=== PATIENT | male | born 1990 | race Two or more races ===

== ENCOUNTER 2017-06-24 21:55 | Emergency (ER) | payer MEDICAID ==
[~2017-06-24] VITALS: Ht 182.9 cm; Wt 77.1 kg
[2017-06-24 21:58] VITALS: BP 133/80
--- NOTE | 2017-06-25 02:17 | NUR ---
CALLED TO BED, NO RESPONSE.
--- NOTE | 2017-06-25 03:05 | NUR ---
CALLED PT NAME IN WR X3. PER ADMITTING PT LEFT.
== END 2017-06-25 03:08 | disposition home or self-care (01) ==
LOC: ER 22:07
DX: M79.644 Pain in right finger(s) (principal)
CPT/HCPCS: A4606; Z7610

== ENCOUNTER 2017-07-14 12:21 | Inpatient (IN) | payer MEDICAID ==
[2017-07-14] VITALS (14 sets, daily range): BP systolic 97–122; BP diastolic 59–92
[~2017-07-14] VITALS: Ht 180.3 cm; Wt 71.7 kg
[2017-07-14] MEDS ORDERED: VECURONIUM 10 MG VIAL IV ONE ×2 (12:23→13:00)
[2017-07-14] MEDS ORDERED: ETOMIDATE 2 MG/ML VIAL IV ONE ×2 (12:23→13:00)
--- NOTE | 2017-07-14 12:25 | NUR ---
NARCAN 2MG GIVEN PER MD ORDERS.
--- NOTE | 2017-07-14 12:29 | NUR ---
AT BEDSIDE FOR INTUBATON ETOMIDATE 20MG VECORONIUM 10MG ADMINISTERED VIA IV LAC, 18 G.
--- NOTE | 2017-07-14 12:31 | NUR ---
PATIENT INTUBATED ET 7.5, 23CM AT THE LIPS POSITIVE CO2 COLOR CHANGE BREATH SOUNDS HEARD BILATERALLY. VSS
--- NOTE | 2017-07-14 12:35 | NUR ---
VENT SETTINGS PER RT AC 16 TV 500 FIO2 100% PEEP 5
[2017-07-14] MEDS ORDERED: PROPOFOL 100 ML ONE (12:37)
[2017-07-14] MEDS ORDERED: NALOXONE PREFILLED SYRINGE 2 MG/2 ML SYRINGE ONE (12:37)
[2017-07-14 12:46] LABS: BASOPHILS # (AUTO) 0.3 /CMM (0.0-0.2); BASOPHILS % (AUTO) 1.8 % (0.0-2.0); EOSINOPHILS % (AUTO) 0.1 % (0.0-6.0); HEMATOCRIT 48 % (39-51); HEMOGLOBIN 16.3 g/dL (13.5-17.5); LYMPHOCYTES # (AUTO) 1.9 /CMM (0.8-4.8); LYMPHOCYTES % (AUTO) 10.2 % (20.0-44.0); MEAN CORPUSCULAR HEMOGLOBIN 32 PG (26.0-33.0); MEAN CORPUSCULAR HGB CONC 34 g/dl (31.0-36.0); MEAN CORPUSCULAR VOLUME 92 fL (80-96); MONOCYTES # (AUTO) 0.6 /CMM (0.1-1.30); MONOCYTES % (AUTO) 3.3 % (2.0-12.0); NEUTROPHILS # (AUTO) 15.8 /CMM (1.8-8.9); NEUTROPHILS % (AUTO) 84.6 % (43.0-81.0); PLATELET COUNT (AUTO) 326 /CMM (150-450); RDW COEFFICIENT OF VARIATION 12.8 (11.5-15.0); RED BLOOD CELL COUNT(AUTO) 5.16 MIL/uL (4.5-6.0); WHITE BLOOD COUNT (AUTO) 18.6 K/uL (4.3-11.0)
[2017-07-14 12:58] LABS: INR 1.16 (0.87-1.13)
--- NOTE | 2017-07-14 12:59 | NUR ---
16 FR howe catheter inserted per sterile protocal. Immediate output 50 ML of urine, yellow and clear.
[2017-07-14] MEDS ORDERED: IV NS 0.9% 1,000 ML BAG IV ONE ×2 (13:00→13:30)
[2017-07-14] MEDS ORDERED: NALOXONE HCL 0.4 MG/ML AMPUL IV ONE (13:00)
--- NOTE | 2017-07-14 13:00 | NUR ---
RT PT CAME FOR OVERDOSE INTUBATION FOR PROTECTION OF AIRWAY INITIALLY SATTING 80%. INTUBATED WITH 7.5 ETT 23 AT LIP BILATERAL BREATH SOUNDS AND CHEST RISE. PLACE PT ON AC 500 RATE 0F 16 100% +[address] RUIZ ABG IN 1 HOUR WILL CONTINUE TO MONITOR
[2017-07-14 13:06] LABS: TROPONIN I 1.057 ng/mL (0.00-0.056)
[2017-07-14 13:06] LABS: APPEARANCE,URINE Slightly Cloudy (CLEAR); BILIRUBIN,URINE Negative (NEGATIVE); BLOOD, URINE Moderate Ery/uL (NEGATIVE); COLOR,URINE Yellow (YELLOW); KETONES,URINE 15 (NEGATIVE); LEUKOCYTE ESTERASE ,URINE Negative (NEGATIVE); NITRITE, URINE Negative (NEGATIVE); PROTEIN,URINE 100 mg/dl (NEGATIVE); UGLUCOSE 500 MG/DL mg/dL (NEGATIVE); UROBILINOGEN,URINE 0.2 EU/dL (0.2)
--- NOTE | 2017-07-14 13:06 | NUR ---
INFORMED OF CRITICAL TROPONIN, ORDERED ATIVAN 2MG.
[2017-07-14] MEDS ORDERED: LORAZEPAM INJ 2 MG/ML VIAL ONE ×2 (13:08→15:14)
[2017-07-14 13:10] LABS: CALCIUM, SERUM 9.5 mg/dL (8.5-10.1); CARBON DIOXIDE 27 mmol/L (21-32); CHLORIDE 104 mmol/L (98-107); GLUCOSE 263 mg/dL (74-106); POTASSIUM 5.3 mmol/L (3.5-5.1); SODIUM SERUM 143 mmol/L (136-145); UREA NITROGEN, BLOOD 16 mg/dL (7-18)
[2017-07-14 13:16] LABS: ALANINE AMINOTRANSFERASE 20 U/L (12-78); ALBUMIN 4.5 g/dL (3.4-5.0); ALCOHOL, BLOOD < 3 mg/dL (0-0); ALKALINE PHOSPHATASE 71 U/L (46-116); ASPARTATE AMINOTRANSFERASE 21 U/L (15-37); BILIRUBIN,DIRECT 0.1 mg/dL (0.0-0.2); BILIRUBIN,TOTAL 0.8 mg/dL (0.2-1.0); SALICYLATE 1.5 mg/dL (2.8-20.0); TOTAL PROTEIN, SERUM 8.4 g/dL (6.4-8.2)
[2017-07-14 13:24] LABS: BACTERIA,URINE None seen /HPF (None Seen); SQUAMOUS EPITHELIAL CELL,UR Few /HPF (None Seen)
[2017-07-14 13:26] LABS: HYALINE CASTS, URINE Few /LPF (None Seen)
[2017-07-14] MEDS ORDERED: PIPERACILLIN /TAZOBACTAM 3.375 G VIAL IV ONE (13:30)
[2017-07-14] MEDS ORDERED: PIPERACILLIN /TAZOBACTAM 3.375 G in IV D5W 50 ML IV ONE (13:30)
[2017-07-14] MEDS ORDERED: LORAZEPAM INJ 2 MG/ML VIAL IV ONE ×2 (13:30→15:00)
--- NOTE | 2017-07-14 13:45 | NUR ---
LEAD PRINCIPAL TECHNICAL ARCHITECT IN ROOM
--- NOTE | 2017-07-14 13:51 | NUR ---
BAIT MAKER OUT OF ROOM.
[2017-07-14] MEDS ORDERED: PROPOFOL 100 ML IV PRN (14:00)
[2017-07-14] MEDS ORDERED: ONDANSETRON HCL/PF 4 MG/2 ML VIAL IVP PRN (14:00)
[2017-07-14] MEDS ORDERED: ACETAMINOPHEN 650 MG/SUPP.RECT RC PRN (14:00)
[2017-07-14] MEDS ORDERED: NOREPINEPHRINE 8 MG in IV D5W 500 ML IV PRN (14:00)
--- NOTE | 2017-07-14 14:10 | NUR ---
PATIENT TAKEN TO CT VIA STRETCHER WITH RN, RT, AND EMT.
--- NOTE | 2017-07-14 14:29 | NUR ---
PATIENT RETURNED FROM CT SCAN.
--- NOTE | 2017-07-14 15:05 | NUR ---
REPORT GIVEN TO HUBER ERICKSON FOR CAIO UPON ADMISSION.
--- NOTE | 2017-07-14 15:20 | NUR ---
REPEAT EKG PERFORMED, SHOWS ST ELEVATION. DR. CHOUDHURY AND TIFFANIE CORRAL INFORMED, AWAITING UPDATE.
[2017-07-14] MEDS ORDERED: ENOXAPARIN SODIUM 40 MG/0.4 ML DISP.SYRIN SQ SCH (16:00)
[2017-07-14 16:10] LABS: BAND % (MANUAL) 8 % (0.0-5.0); LYMPHOCYTES % (MANUAL) 16 % (16-48); MONOCYTES % (MANUAL) 5 % (0-11.0); NEUTROPHILS % (MANUAL) 71 (42-76)
[2017-07-14] MEDS ORDERED: ASPIRIN 300 MG/SUPP.RECT RC STA (16:20)
[2017-07-14] MEDS ORDERED: ASPIRIN 300 MG/SUPP.RECT RC ONE (16:22)
--- NOTE | 2017-07-14 17:31 | NUR ---
REPORT GIVEN TO ALEX ERICKSON FOR CAIO UPON ADMISSION. DR. BUSTAMANTE AND TIFFANIE CORRAL CONFIRMED PATIENT CAN BE ADMITTED UP TO FLOOR AT THIS TIME.
--- NOTE | 2017-07-14 18:00 | NUR ---
PATIENT ADMITTED FROM ER WITH DX OVERDOSE. ORALLY INTUBATED-CONNECTED TO VENT BY RT. PATIENT OPENS EYES BUT DOES NOT FOLLOW COMMANDS. TRYING TO REACH FOR ETT. PLACED ON BILATERAL WRIST RESTRAINTS. DIPRIVAN DRIP AT 40 MCG/KG/MIN. ADMISSION ASSESSMENT INITIATED. SR ON MONITOR. SBP>100. MULTIPLE SKIN BRUISING ON BUE/BLE.
[2017-07-14] MEDS: PIPERACILLIN /TAZOBACTAM 3.375 G in IV D5W 50 ML IV SCH ×2 (18:17→23:55)
[2017-07-14] MEDS: IV NS 0.9% 1,000 ML IV PRN (18:17)
--- NOTE | 2017-07-14 19:30 | NUR ---
AIRCRAFT LANDING GEAR INSPECTOR OPENING NOTES REPORT RECEIVED FROM NICK ERICKSON. PATIENT VERBALLY UNAROUSABLE @ THIS TIME W/ LITTLE RESPONSE TO TACTILE STIMULI. ETT IN PLACE W/ VENT SETTINGS AC 16, TV 500, FIO2 70%, PEEP 5. ON TELE SINUS RHYTHM W/ ELEVATED T WAVE IN THE 90S. LEFT AC, LEFT HAND & RIGHT HAND IV SITES INTACT & PATENT. PROPOFOL RUNNING @ 40MCG IN LEFT AC & NS @ 125 ML/HR IN RIGHT HAND. NO COMPLICATIONS NOTED. MALDONADO CATH INTACT & DRAINING YELLOW URINE. SAFETY MEASURES IN PLACE W/ BILATERAL SOFT WRIST RESTRAINTS APPLIED. WILL CONTINUE TO MONITOR.
[2017-07-14 20:52] LABS: ABG PCO2 42.8 mmHg (35.0-45.0); ABG PH 7.357 (7.350-7.450); ABG PO2 279.4 mmHg (75.0-100.0); AaDO2 173.7 mmHg; COHb 1.8 % (0.5-1.5); MetHb 0.5 % (0.0-1.5); O2Hb 96.7 % (94.0-97.0); PEEP,BG 5 cm H2O; SITE, ABG Right Radial
--- NOTE | 2017-07-14 20:56 | NUR ---
ABG DONE. NOTIFIED RN WITH THE RESULT. FIO2 TITRATED TO 50%. WILL CONTINUE TO MONITOR.
[2017-07-14] MEDS: ENOXAPARIN SODIUM 40 MG/0.4 ML DISP.SYRIN SQ SCH (21:00)
--- NOTE | 2017-07-14 21:16 | NUR ---
PT RECEIVED INTUBATED WITH 7.5 ETT SECURED AT 23CM AT THE LIP. NO RESP DISTRESS NOTED PT TOLERATING VENT SETTINGS. SX'D FOR MOD AMT OF THICK YELLOW SECRETIONS. VENT ALARMS SET AND AUDIBLE. AMBU BAG AT [facility]. VENT PLUGGED INTO RED OUTLET. WILL CONTINUE TO MONITOR. Addendum: 07/14/17 at 2117 by MICHAELA FRANK RT Amended: Links added.
--- NOTE | 2017-07-14 22:00 | NUR ---
RN NOTES RECEIVED CALL FROM LAB W/ TROPONIN LEVEL = [phone].
[2017-07-14] MEDS: LORAZEPAM INJ 2 MG/ML VIAL IV PRN (22:33)
[2017-07-14] MEDS: PROPOFOL 10MG/ML 50ML 50 ML IV PRN (22:34)
--- NOTE | 2017-07-14 22:40 | NUR ---
RN NOTES NEW BOTTLE OF DIPRIVAN STARTED & INCREASED RATE @ 45 MCG/KG D/T PATIENT BEING MORE AWAKE & TRYING TO PULL OUT ETT. WILL CONTINUE TO MONITOR.
[2017-07-15] VITALS (31 sets, daily range): BP systolic 94–119; BP diastolic 53–80
--- NOTE | 2017-07-15 00:30 | NUR ---
RN NOTES PATIENT CONTINUES TO WAKE UP AND ATTEMPT TO PULL ETT. DIPRIVAN DRIP INCREASED TO 50 MCG/KG/MIN. WILL CONTINUE TO MONITOR.
[2017-07-15] MEDS: PROPOFOL 10MG/ML 50ML 50 ML IV PRN ×9 (01:12→12:03)
[2017-07-15] MEDS: IV NS 0.9% 1,000 ML IV PRN ×3 (02:13→20:31)
[2017-07-15] MEDS: LORAZEPAM INJ 2 MG/ML VIAL IV PRN (02:14)
--- NOTE | 2017-07-15 03:59 | NUR ---
RN NOTES SPOKE TO LARISSA RODRÍGUEZ REGARDING PATIENT CONTINUING TO WAKE UP DESPITE DIPRIVAN DRIP @ MAX 50 MCG/KG/MIN. RECEIVED NEW ORDER MAY TITRATE UP TO 100 MCG/KG/MIN. ORDER CARRIED OUT.
[2017-07-15 05:27] LABS: BASOPHILS % (AUTO) 0.2 % (0.0-2.0); EOSINOPHILS % (AUTO) 0.2 % (0.0-6.0); HEMATOCRIT 40 % (39-51); HEMOGLOBIN 13.7 g/dL (13.5-17.5); LYMPHOCYTES # (AUTO) 1.6 /CMM (0.8-4.8); LYMPHOCYTES % (AUTO) 12.3 % (20.0-44.0); MEAN CORPUSCULAR HEMOGLOBIN 32 PG (26.0-33.0); MEAN CORPUSCULAR HGB CONC 34 g/dl (31.0-36.0); MEAN CORPUSCULAR VOLUME 92 fL (80-96); MONOCYTES # (AUTO) 0.4 /CMM (0.1-1.30); NEUTROPHILS # (AUTO) 11.1 /CMM (1.8-8.9); NEUTROPHILS % (AUTO) 84.3 % (43.0-81.0); PLATELET COUNT (AUTO) 189 /CMM (150-450); RED BLOOD CELL COUNT(AUTO) 4.35 MIL/uL (4.5-6.0); WHITE BLOOD COUNT (AUTO) 13.2 K/uL (4.3-11.0)
[2017-07-15 05:39] LABS: ALBUMIN 3.3 g/dL (3.4-5.0); BILIRUBIN,TOTAL 0.8 mg/dL (0.2-1.0); CALCIUM, SERUM 8.2 mg/dL (8.5-10.1); MAGNESIUM 1.9 mg/dL (1.8-2.4); POTASSIUM 3.8 mmol/L (3.5-5.1); TOTAL PROTEIN, SERUM 6.1 g/dL (6.4-8.2)
[2017-07-15] MEDS: PIPERACILLIN /TAZOBACTAM 3.375 G in IV D5W 50 ML IV SCH ×4 (05:59→23:34)
--- NOTE | 2017-07-15 06:05 | NUR ---
RN NOTES RECEIVED CALL FROM LAB FOR TROPONIN LEVEL 0.074. LEVEL TRENDING DOWN.
--- NOTE | 2017-07-15 06:09 | NUR ---
RN NOTES DIPRIVAN DRIP CURRENTLY @ 65 MCG/KG/MIN. TOLERATING WELL.
--- NOTE | 2017-07-15 08:01 | NUR ---
INITIAL VISION IMPAIRED TEACHER NOTE RCVD PT SEDATED, PT RESPONDS TO PAINFUL STIMULI. BILATERAL SOFT WRIST RESTRAINTS IN PLACE. CIRCULATION CHECKS DONE. SR ON TELE WITH T ELEVATION. MALDONADO DRAINING GREEN/YELLOW URINE. IV SITES C/D/I/PATENT. NO S/O INFILTRATION/PHLEBITIS OBSERVED. WILL CONTINUE TO MONITOR PT FOR SAFETY AND COMFORT. BED IN LOW AND LOCKED POSITION.
[2017-07-15] MEDS ORDERED: ASPIRIN 300 MG/SUPP.RECT RC SCH (09:00)
[2017-07-15] MEDS ORDERED: ASPIRIN 325 MG TABLET PO SCH (09:00)
[2017-07-15] MEDS ORDERED: PANTOPRAZOLE 40 MG VIAL IV SCH (09:00)
--- NOTE | 2017-07-15 09:14 | NUR ---
FIELD AGRONOMIST NOTE PT ABLE TO COME OFF SEDATION QUICKLY UPON CHANGING BOTTLES. PT BECAME AGITATED CALMED DOWN AFTER BEING ORIENTED TO PLACE, SITUATION. PT ABLE TO FOLLOW SIMPLE COMMANDS SUCH SQUEEZE FINGERS ON COMMAND. WILL CONTINUE TO MONITOR.
[2017-07-15 09:20] LABS: ABG BASE EXCESS 0.3 mmol/L; ABG PCO2 40.7 mmHg (35.0-45.0); ABG PH 7.406 (7.350-7.450); ABG PO2 96.3 mmHg (75.0-100.0); AaDO2 142.1 mmHg; COHb 0.6 % (0.5-1.5); MetHb 0.5 % (0.0-1.5); O2Hb 95.9 % (94.0-97.0); SITE, ABG Right Radial
--- NOTE | 2017-07-15 13:56 | NUR ---
PER DR OLIVO ORDER PATIENT WAS EXTUBATED. PATIENT AWAKE, ALERT, RESPONSIVE. NO SOB AT THIS TIME. FAMILY AT BEDSIDE
--- NOTE | 2017-07-15 14:00 | NUR ---
DOPE HEATER NOTE BEDSIDE SWALLOW EVAL DONE. PT TOLERATED ICE CHIPS, PUDIN AND THIN LIQUIDS. DIET ORDERED PER DR. OLIVO. NO DIETARY RESTRICTIONS PER PT.
[2017-07-15] MEDS ORDERED: LORAZEPAM 1 MG TABLET PO PRN (14:30)
--- NOTE | 2017-07-15 19:24 | NUR ---
RECEIVING DOCK CHECKER NOTE PT REMAINS STABLE, BREATHING WELL ON RA. MALDONADO DISCONTINUED AT 1400. PT VOIDING WELL TO URINAL. IV SITES C/D/I/PATENT. NO S/O INFILTRATION/PHLEBITIS OBSERVED. PT'S CARE ENDORSED TO WEBSITE DEVELOPER RN FOR CONTINUITY OF CARE.
--- NOTE | 2017-07-15 20:00 | NUR ---
Received patient awake alert and oriented x 4.Moves all extremities.VS stable.SR. Respiration even and unlabored.O2 sat 94% ON rm air.Patient denies any discomfort at present.Saline lock sites x 3 intact.Safety measures implemented with call light within reach. Provided urinal.
[2017-07-15] MEDS: ENOXAPARIN SODIUM 40 MG/0.4 ML DISP.SYRIN SQ SCH (21:02)
[2017-07-16] VITALS (12 sets, daily range): BP systolic 97–117; BP diastolic 55–75
[2017-07-16] MEDS ORDERED: ACETAMINOPHEN 325 MG TABLET ONE (00:08)
--- NOTE | 2017-07-16 00:11 | NUR ---
Patient febrile 101.Tylenol given as PRN.Cooling measures done.
[2017-07-16] MEDS ORDERED: ACETAMINOPHEN 325 MG TABLET PO PRN (00:30)
--- NOTE | 2017-07-16 00:30 | NUR ---
RESERVE OFFICER PT COMPLAINING OF LEFT LEG AND LEFT EAR NUMBNESS. PT STATES THAT HE FELT THE NUMBNESS WHEN HE WOKE UP ON 07/15. PT WAS EXTUBATED AT 1356 ON 07/15. AT 0025 PT STATED HIS COMPLAINT AND PRIMARY EPIC PROVIDER (RAMON DIAS) WAS NOTIFIED. NEURO ASSESSMENT DONE WITH NO DEFICITS NOTED, NO APHASIA. PT IS A/A/O X4, MOVES ALL EXTREMITIES.TURNS IN BED INDEPENDENTLY. FAMILY AT BEDSIDE.
--- NOTE | 2017-07-16 00:30 | NUR ---
Patient family visiting.Updated of patient status.
--- NOTE | 2017-07-16 00:45 | NUR ---
BURGLAR ALARM INSTALLER NO NEW ORDERS RECEIVED AT THIS TIME FOR LEFT EAR AND LEG NUMBNESS COMPLAINT. WILL CONTINUE TO CLOSELY MONITOR.
[2017-07-16] MEDS: IV NS 0.9% 1,000 ML IV PRN (04:47)
[2017-07-16 04:55] LABS: BASOPHILS % (AUTO) 0.1 % (0.0-2.0); EOSINOPHILS % (AUTO) 0.4 % (0.0-6.0); HEMATOCRIT 38 % (39-51); HEMOGLOBIN 13.2 g/dL (13.5-17.5); LYMPHOCYTES # (AUTO) 1.9 /CMM (0.8-4.8); LYMPHOCYTES % (AUTO) 15.6 % (20.0-44.0); MEAN CORPUSCULAR HEMOGLOBIN 31 PG (26.0-33.0); MEAN CORPUSCULAR HGB CONC 34 g/dl (31.0-36.0); MEAN CORPUSCULAR VOLUME 91 fL (80-96); MONOCYTES # (AUTO) 0.7 /CMM (0.1-1.30); MONOCYTES % (AUTO) 5.9 % (2.0-12.0); NEUTROPHILS # (AUTO) 9.4 /CMM (1.8-8.9); PLATELET COUNT (AUTO) 193 /CMM (150-450); RDW COEFFICIENT OF VARIATION 13.1 (11.5-15.0); RED BLOOD CELL COUNT(AUTO) 4.23 MIL/uL (4.5-6.0); WHITE BLOOD COUNT (AUTO) 11.9 K/uL (4.3-11.0)
[2017-07-16 05:11] LABS: ALBUMIN 2.8 g/dL (3.4-5.0); BILIRUBIN,TOTAL 0.7 mg/dL (0.2-1.0); CALCIUM, SERUM 8.5 mg/dL (8.5-10.1); CREATININE 0.8 mg/dL (0.6-1.3); PHOSPHORUS 1.9 mg/dL (2.5-4.9); POTASSIUM 3.4 mmol/L (3.5-5.1); TROPONIN I 0.302 ng/mL (0.00-0.056)
[2017-07-16] MEDS: PIPERACILLIN /TAZOBACTAM 3.375 G in IV D5W 50 ML IV SCH (05:28)
--- NOTE | 2017-07-16 06:56 | NUR ---
Patient slept most of the night.Latest temp 98.8.IVF infusing well.Safety measures maintained with call light within reach.Needs attended.Verbalized still with numbness to left ear and left leg. Will endorse to AM shift RN for continuity of care.
[2017-07-16] MEDS: PANTOPRAZOLE 40 MG TABLET.DR PO SCH (07:59)
--- NOTE | 2017-07-16 08:09 | NUR ---
FORM LAYER NOTE RCVD PT SLEEPING IN BED, EASILY AROUSED TO NAME/LIGHT TOUCH. SR ON TELE. ON RA WITH GOO SATURATION. VOIDING TO URINAL. LEFT AC #18 AND LEFT HAND #20 C/D/I/PATENT. NO S/O INFILTRATION/PHLEBITIS OBSERVED UPON FLUSHING. PT C/O NO PAIN AT THIS TIME, NUMBNESS OVER LEFT EAR RADIATING TO LEFT SIDE OF HEAD AND LLE REMAIN. PT WAS OBSERVED DRIFTING LLE UPON ASSESSING WHILE HOLDING LEG UP FOR 5 SECONDS. FINDINGS WERE REPORTED TO DR. BUSTAMANTE WHO IS SEEING PT. NO NEW ORDERS WERE RCVD. WILL CONTINUE TO MONITOR PT FOR SAFETY AND COMFORT. CALL LIGHT WITHIN REACH. PT ENCOURAGED TO SIT IN CHAIR FOR MEALS, PT REPORTED NO DIZZINESS UPON STANDING UP, PT TRANSFERRED INDEPENDENTLY TO CHAIR.
[2017-07-16] MEDS ORDERED: ASPIRIN EC 325 MG TABLET.DR PO SCH (09:00)
[2017-07-16] MEDS ORDERED: POTASSIUM CHLORIDE 20 MEQ TAB.PRT.SR PO SCH (10:00)
--- NOTE | 2017-07-16 10:16 | NUR ---
TRANSFER TO MED-KERFER MACHINE OPERATOR NOTE PT TRANSFERRED TO MED-SURG ROOM 314-2 VIA WHEELCHAIR, MS STATUS. PT TRANSFERRED TO WHEELCHAIR AND BACK TO BED INDEPENDENTLY. REPORT GIVEN TO WINNIE CERDA. PT'S CELL PHONE, PAROLE BOARD MEMBER, SOCKS AND BLANKET TRANSPORTED WITH PT.
--- NOTE | 2017-07-16 10:30 | NUR ---
ms rn received a new transfer from icu, 27 year old male, awake,alert,oriented x4,not in any form of distress, respirations even and unlabored,no sob notewd, denies pain at this time, will monitor patient's condition.
[2017-07-16] MEDS ORDERED: K PHOS NEUTRAL 250 MG TABLET PO ONE (11:30)
[2017-07-16] MEDS ORDERED: LEVOFLOXACIN (750 MG) 750 MG TABLET PO SCH (12:00)
--- NOTE | 2017-07-16 12:30 | NUR ---
ms soto lunch served, due meds given, tolerated well.
--- NOTE | 2017-07-16 19:00 | NUR ---
MS RN NO CHANGE OF CONDITION,ALL NEEDS ATTENDED.
--- NOTE | 2017-07-16 19:15 | NUR ---
RN OPENING NOTES PT SLEEPING IN BED. EASILY AWOKEN BY NAME. NO COMPLAINTS OF PAIN OR DISCOMFORT AT THIS TIME. NO SOB NOTED AT THIS TIME. PT HAS LEFT HAND #20 AND LEFT AC #18 IV, BOTH INTACT AND PATENT. SAFETY PRECAUTIONS IN PLACE. BED IN LOW, LOCKED POSITION, [id number] UP. WILL CONTINUE TO MONITOR.
[2017-07-16] MEDS: ENOXAPARIN SODIUM 40 MG/0.4 ML DISP.SYRIN SQ SCH (20:51)
[2017-07-17 06:59] LABS: CALCIUM, SERUM 8.3 mg/dL (8.5-10.1); CREATININE 0.7 mg/dL (0.6-1.3); PHOSPHORUS 2.9 mg/dL (2.5-4.9); POTASSIUM 3.3 mmol/L (3.5-5.1)
--- NOTE | 2017-07-17 07:20 | NUR ---
RN CLOSING NOTES PT RESTING IN BED. NO COMPLAINTS OF PAIN OR DISCOMFORT AT THIS TIME. NO SOB NOTED AT THIS TIME. PT HAS LEFT HAND #20 AND LEFT AC #18 IV, BOTH INTACT AND PATENT. SAFETY PRECAUTIONS IN PLACE. BED IN LOW, LOCKED POSITION, [id number] UP. WILL ENDORSE TO DAY SHIFT NURSE FOR CONTINUITY OF CARE.
--- NOTE | 2017-07-17 07:48 | NUR ---
MS/RN OPENING NOTE RECEIVED PATIENT IN BED AWAKE. ALERT AND ORIENTED X4. RESPIRATION REGULAR AND UNLABORED. DENIES SOB, PAIN. IN NO APPARENT DISTRESS. LEFT AC G18 PATENT, NO S/S INFILTRATION NOTED. BED LOW AND LOCKED. SIDE RAIL UP X2. CALL LIGHT WITHIN REACH. WILL CONTINUE TO MONITOR.
[2017-07-17 08:00] VITALS: BP 123/77
[2017-07-17] MEDS: PANTOPRAZOLE 40 MG TABLET.DR PO SCH (09:06)
[2017-07-17] MEDS ORDERED: POTASSIUM CHLORIDE 20 MEQ TAB.PRT.SR PO ONE (11:00)
--- NOTE | 2017-07-17 11:05 | NUR ---
Social service consult requested by RAMON Dave for drug resources. Pt. is a 27 year old made who was initially admitted on 07/14/17 to Intensive Care Unit for substance abuse overdose. Pt. was found unconscious in a hotel room. SW met with pt. and his mother bedside. Pt. is alert and oriented and was sitting on the bed getting ready to be discharged. SW offered pt. referrals to drug treatment programs however pt. declined. Pt. has a chip installed in his body that assist him in not doing drugs. Pt. had been sober for a few years and relapsed last week when he broke up with his girlfriend. No other social service needs are requested at this time SW is available if needed.
--- NOTE | 2017-07-17 11:10 | NUR ---
MS/RN CLOSING NOTE PATIENT DRESSED UP AND SITTING IN BED. MOTHER BY THE BEDSIDE. PATIENT ALERT AND ORIENTED X4. RESPIRATION REGULAR AND UNLABORED. DENIES SOB, DENIES PAIN. IN NO APPARENT DISTRESS. DISCHARGE EDUCATION PROVIDED. THE PATIENT AND THE MOTHER VERBALIZED UNDERSTANDING. PATIENT LEFT THE FACILITY WITH THE MOTHER VIA PRIVATE CAR. PATIENT LEFT IN STABLE CONDITION.
== END 2017-07-17 12:30 | disposition home or self-care (01) | DRG 812 ==
LOC: ER 12:22 → UNDOADMIN 15:08 → ICU 15:08 → MED 07-16 10:06
PROVIDERS: ADMIT Nurse Practitioner Acute Care; ATTEND Nurse Practitioner Acute Care
PROC: 5A1945Z Respiratory Ventilation, 24-96 Consecutive Hours (ICD-10-PCS; principal; 2017-07-14)
PROC: 0BH18EZ Insertion of Endotracheal Airway into Trachea, Via Natural or Artificial Opening Endoscopic (ICD-10-PCS; principal; 2017-07-14)
DX: T43.621A Poisoning by amphetamines, accidental (unintentional), initial encounter (principal); J96.01 Acute respiratory failure with hypoxia; I21.4 Non-ST elevation (NSTEMI) myocardial infarction; J69.0 Pneumonitis due to inhalation of food and vomit; G92 Toxic encephalopathy; N17.9 Acute kidney failure, unspecified; T40.5X1A Poisoning by cocaine, accidental (unintentional), initial encounter; T42.4X1A Poisoning by benzodiazepines, accidental (unintentional), initial encounter; T40.7X1A Poisoning by cannabis (derivatives), accidental (unintentional), initial encounter; D72.829 Elevated white blood cell count, unspecified; R73.9 Hyperglycemia, unspecified; F19.188 Other psychoactive substance abuse with other psychoactive substance-induced disorder; Y92.59 Other trade areas as the place of occurrence of the external cause; R56.9 Unspecified convulsions; E87.2 Acidosis; E87.5 Hyperkalemia
CPT/HCPCS: 31720; 36415; 36600; 70450-TC; 71045-TC; 80048-TC; 80053-TC; 80076-TC; 80305; 81000-TC; 82803-TC; 82962-TC; 83605-TC; 83735-TC; 84100-TC; 84484-TC; 85025-TC; 85730-TC; 87040-TC; 87081-TC; 93307-TC; 94002-TC; 94003-TC; 94762-TC; 94799-TC; A4606; C9113; G0480; J1650; J2060; J2310; J2543; J3490; J7030; J7050; J7060; Z7610

== ENCOUNTER 2018-10-02 00:48 | Emergency (ER) | payer MEDICAID, OTHER ==
[~2018-10-02] VITALS: Ht 182.9 cm; Wt 79.4 kg
--- NOTE | 2018-10-02 01:00 | NUR ---
PT DANG. C/O "FOUND IN BATHROOM, ADMITTING TO USING CRYSTAL AND HEROIN AROUND 2 HRS AGO" PT AOX4. GIVEN NARCAN 2MG ON ROUTE. RESPIRATIONS EVEN/UNLABOURED. -DIZZY -N.V NOTED.
[2018-10-02] MEDS ORDERED: ONDANSETRON HCL/PF 4 MG/2 ML VIAL ONE (01:15)
[2018-10-02 01:19] LABS: BASOPHILS # (AUTO) 0.1 /CMM (0.0-0.2); BASOPHILS % (AUTO) 1.1 % (0.0-2.0); EOSINOPHILS % (AUTO) 0.6 % (0.0-6.0); HEMATOCRIT 44 % (39-51); HEMOGLOBIN 15.3 g/dL (13.5-17.5); LYMPHOCYTES # (AUTO) 2.6 /CMM (0.8-4.8); LYMPHOCYTES % (AUTO) 32.8 % (20.0-44.0); MEAN CORPUSCULAR HGB CONC 35 g/dl (31.0-36.0); MEAN CORPUSCULAR VOLUME 90 fL (80-96); MONOCYTES # (AUTO) 0.6 /CMM (0.1-1.30); MONOCYTES % (AUTO) 7.2 % (2.0-12.0); NEUTROPHILS # (AUTO) 4.6 /CMM (1.8-8.9); NEUTROPHILS % (AUTO) 58.3 % (43.0-81.0); PLATELET COUNT (AUTO) 212 /CMM (150-450); RED BLOOD CELL COUNT(AUTO) 4.87 MIL/uL (4.5-6.0); WHITE BLOOD COUNT (AUTO) 7.8 K/uL (4.3-11.0)
[2018-10-02] MEDS ORDERED: ONDANSETRON HCL/PF 4 MG/2 ML VIAL IVP ONE (01:30)
[2018-10-02] MEDS ORDERED: IV NS 0.9% 1,000 ML BAG IV ONE (01:30)
[2018-10-02 01:41] LABS: ALBUMIN 4.2 g/dL (3.4-5.0); BILIRUBIN,DIRECT 1.1 mg/dL (0.0-0.2); BILIRUBIN,TOTAL 2.6 mg/dL (0.2-1.0); CALCIUM, SERUM 9.3 mg/dL (8.5-10.1); CREATININE 1.1 mg/dL (0.6-1.3); TOTAL PROTEIN, SERUM 7.6 g/dL (6.4-8.2)
[2018-10-02 02:01] LABS: POTASSIUM 3.4 mmol/L (3.5-5.1)
[2018-10-02 04:46] VITALS: BP 112/68
== END 2018-10-02 04:46 | disposition home or self-care (01) ==
LOC: ER 00:52
DX: T40.1X1A Poisoning by heroin, accidental (unintentional), initial encounter (principal); F17.200 Nicotine dependence, unspecified, uncomplicated; F15.10 Other stimulant abuse, uncomplicated; R94.5 Abnormal results of liver function studies; Y92.89 Other specified places as the place of occurrence of the external cause
CPT/HCPCS: 36415; 71045; 80048; 80076; 80305; 85025; 93005; 96374; 99284; 99406; J2405; J7030

== ENCOUNTER 2020-11-20 20:49 | Emergency (ER) | payer MEDICAID, OTHER ==
[~2020-11-20] VITALS: Ht 182.9 cm; Wt 81.6 kg
[2020-11-20 20:50] VITALS: BP 122/76
[2020-11-20] MEDS ORDERED: IV NS 0.9% 1,000 ML BAG IV ONE (21:30)
== END 2020-11-20 22:28 | disposition home or self-care (01) ==
LOC: ER 20:55
DX: S00.83XA Contusion of other part of head, initial encounter (principal); F11.10 Opioid abuse, uncomplicated; E86.0 Dehydration; X58.XXXA Exposure to other specified factors, initial encounter; Y93.89 Activity, other specified; Y92.89 Other specified places as the place of occurrence of the external cause; Y99.8 Other external cause status
CPT/HCPCS: 70450; 70486; 96360; 99285; J7030

== ENCOUNTER 2021-08-21 19:03 | Emergency (ER) | payer OTHER ==
[~2021-08-21] VITALS: Ht 182.9 cm; Wt 86.2 kg
--- NOTE | 2021-08-21 19:06 | NUR ---
BIBRA 60 FRM HOME. AMS R/T SMOKING FENTANYL. PER SAMPLE HAND REPORT, "WE SAW HIM UNCONSCIOUS ON THE FLOOR, STARTED IV LINE. IN THE AMBULANCE EN ROUTE, HE WOKE UP AND GOT CONFUSED, PULLED OUT IV LINE." TO ER BED 13, HOOKED TO MONITOR. CHANGED TO HOSP GOWN, WARM BLANKET PROVIDED. DROWSY IN APPEARANCE. NOT ABLE TO ANSWER QUESTIONS PROPERLY. AWAITING MD NAIR.
--- NOTE | 2021-08-21 19:41 | NUR ---
PT AWAKE & AMBULATORY. COLLECTED URINE AND SENT TO LAB
--- NOTE | 2021-08-21 20:22 | NUR ---
LAB AT BEDSIDE
[2021-08-21 20:33] LABS: BASOPHILS # (AUTO) 0.1 K/uL (0.0-0.2); BASOPHILS % (AUTO) 0.7 % (0.0-2.0); EOSINOPHILS % (AUTO) 1.6 % (0.0-6.0); HEMATOCRIT 39 % (39-51); HEMOGLOBIN 13.5 g/dL (13.5-17.5); LYMPHOCYTES # (AUTO) 2.8 K/uL (0.8-4.8); LYMPHOCYTES % (AUTO) 36.8 % (20.0-44.0); MEAN CORPUSCULAR HGB CONC 35 g/dl (31.0-36.0); MEAN CORPUSCULAR VOLUME 86 fL (80-96); MONOCYTES # (AUTO) 0.5 K/uL (0.1-1.30); MONOCYTES % (AUTO) 6.4 % (2.0-12.0); NEUTROPHILS # (AUTO) 4.2 K/uL (1.8-8.9); NEUTROPHILS % (AUTO) 54.5 % (43.0-81.0); PLATELET COUNT (AUTO) 190 K/uL (150-450); RED BLOOD CELL COUNT(AUTO) 4.54 MIL/uL (4.5-6.0); WHITE BLOOD COUNT (AUTO) 7.7 K/uL (4.3-11.0)
[2021-08-21 20:35] LABS: BILIRUBIN,URINE SMALL (NEGATIVE); COLOR,URINE DARK YELLOW (YELLOW); LEUKOCYTE ESTERASE ,URINE NEGATIVE (NEGATIVE); NITRITE, URINE NEGATIVE (NEGATIVE); PH,URINE 5.5 (5.0-8.0); PROTEIN,URINE NEGATIVE (NEGATIVE); UGLUCOSE NEGATIVE (NEGATIVE)
[2021-08-21 20:45] LABS: BACTERIA,URINE Few /HPF (None Seen); MUCUS,URINE Moderate /LPF (None Seen); RBC,URINE 0-2 /HPF (0-2); SQUAMOUS EPITHELIAL CELL,UR Few /HPF (None Seen); WBC,URINE 0-2 /HPF (0-3)
[2021-08-21 20:47] LABS: CALCIUM, SERUM 8.6 mg/dL (8.5-10.1); CARBON DIOXIDE 31 mmol/L (21-32); CHLORIDE 102 mmol/L (98-107); CREATININE 0.8 mg/dL (0.6-1.3); GLUCOSE 79 mg/dL (74-106); POTASSIUM 3.3 mmol/L (3.5-5.1); SODIUM SERUM 138 mmol/L (136-145); UREA NITROGEN, BLOOD 13 mg/dL (7-18)
[2021-08-21 21:00] LABS: ALANINE AMINOTRANSFERASE 73 U/L (12-78); ALBUMIN 3.9 g/dL (3.4-5.0); ALCOHOL, BLOOD < 3 mg/dL (0-0); ALKALINE PHOSPHATASE 43 U/L (46-116); ASPARTATE AMINOTRANSFERASE 68 U/L (15-37); BILIRUBIN,DIRECT 0.3 mg/dL (0.0-0.2); BILIRUBIN,TOTAL 0.8 mg/dL (0.2-1.0)
[2021-08-21 21:06] LABS: ACETAMINOPHEN < 0 ug/ml (10-30)
[2021-08-21] MEDS ORDERED: POTASSIUM CHLORIDE 20 MEQ TAB.PRT.SR PO ONE ×2 (22:00→22:22)
[2021-08-21 23:00] VITALS: BP 124/60
--- NOTE | 2021-08-22 | NUR ---
pt ambulatory with a steady gait
[2021-08-22] MEDS ORDERED: CEPH500C2 PO (00:03)
--- NOTE | 2021-08-22 00:08 | NUR ---
Patient discharged to home in stable condition. Written and verbal after care instructions given. Patient verbalizes understanding of instruction.
== END 2021-08-22 00:13 | disposition home or self-care (01) ==
LOC: ER 19:06 → EDBD 19:06 → ER 08-22 00:13
DX: T43.621A Poisoning by amphetamines, accidental (unintentional), initial encounter (principal); F12.229 Cannabis dependence with intoxication, unspecified; Y92.89 Other specified places as the place of occurrence of the external cause
CPT/HCPCS: 36415; 80048-TC; 80076-TC; 81001; 85025-TC; G0480

== ENCOUNTER 2022-07-21 10:21 | Emergency (ER) | payer OTHER ==
[~2022-07-21] VITALS: Ht 177.8 cm; Wt 90.7 kg
[~2022-07-21 10:21] MED LIST: CEPH500C2 PO
--- NOTE | 2022-07-21 10:40 | NUR ---
REceived pt 32 yrs male walking in from home c/o abdominl pain since last night with Nuasea abdfomin soft no distention
--- NOTE | 2022-07-21 10:50 | NUR ---
UA SENT TO LAB
[2022-07-21] MEDS ORDERED: HALOPERIDOL LACTATE INJ 5 MG/ML VIAL IV ONE (11:00)
[2022-07-21] MEDS ORDERED: IV NS 0.9% 1,000 ML BAG IV ONE (11:00)
[2022-07-21] MEDS ORDERED: diphenhydrAMINE HCL 50 MG/ML VIAL IV ONE (11:00)
[2022-07-21] MEDS ORDERED: NALO4SPR BNOSTRILS (11:07)
[2022-07-21 11:10] LABS: BASOPHILS % (AUTO) 0.1 % (0.0-2.0); EOSINOPHILS % (AUTO) 0.2 % (0.0-6.0); HEMATOCRIT 42 % (39-51); HEMOGLOBIN 14.1 g/dL (13.5-17.5); LYMPHOCYTES # (AUTO) 1.5 K/uL (0.8-4.8); LYMPHOCYTES % (AUTO) 14.5 % (20.0-44.0); MEAN CORPUSCULAR HGB CONC 34 g/dl (31.0-36.0); MEAN CORPUSCULAR VOLUME 87 fL (80-96); MONOCYTES # (AUTO) 0.3 K/uL (0.1-1.30); MONOCYTES % (AUTO) 3.2 % (2.0-12.0); NEUTROPHILS # (AUTO) 8.4 K/uL (1.8-8.9); PLATELET COUNT (AUTO) 204 K/uL (150-450); RED BLOOD CELL COUNT(AUTO) 4.83 MIL/uL (4.5-6.0); WHITE BLOOD COUNT (AUTO) 10.3 K/uL (4.3-11.0)
[2022-07-21] MEDS ORDERED: diphenhydrAMINE HCL 50 MG/ML VIAL ONE (11:23)
[2022-07-21] MEDS ORDERED: HALOPERIDOL LACTATE INJ 5 MG/ML VIAL ONE (11:24)
[2022-07-21 11:34] LABS: POTASSIUM 3.1 mmol/L (3.5-5.1)
[2022-07-21 11:40] LABS: ALBUMIN 4.4 g/dL (3.4-5.0); BILIRUBIN,DIRECT 0.3 mg/dL (0.0-0.2); BILIRUBIN,TOTAL 1.1 mg/dL (0.2-1.0)
[2022-07-21] MEDS ORDERED: HALOPERIDOL LACTATE INJ 5 MG/ML VIAL IM ONE (12:00)
--- NOTE | 2022-07-21 12:20 | NUR ---
TO CT SCAN OF ABDOMIN
[2022-07-21] MEDS ORDERED: POTASSIUM CHLORIDE 20 MEQ TAB.PRT.SR PO ONE ×2 (12:30→12:47)
--- NOTE | 2022-07-21 12:50 | NUR ---
Resting and asleepy dineses abdominale pain 07/05
--- NOTE | 2022-07-21 13:10 | NUR ---
IV removed. Catheter intact and site benign. Pressure and 4x4 applied to site. No bleeding noted.
--- NOTE | 2022-07-21 13:15 | NUR ---
Patient discharged to home in stable condition. Written and verbal after care instructions given. Patient verbalizes understanding of instruction.
[2022-07-21 13:36] VITALS: BP 124/77
== END 2022-07-21 13:36 | disposition home or self-care (01) ==
LOC: ER 10:30
DX: R11.2 Nausea with vomiting, unspecified (principal); F17.200 Nicotine dependence, unspecified, uncomplicated; R10.9 Unspecified abdominal pain; E86.0 Dehydration; E87.6 Hypokalemia; F11.10 Opioid abuse, uncomplicated; Z79.899 Other long term (current) drug therapy
CPT/HCPCS: 99284; 96374; 96361; 96372; 85025; 80048; 83690; 80076; 36415; J1200; J1630; J7030

== ENCOUNTER 2022-07-22 10:33 | Emergency (ER) | payer OTHER ==
[~2022-07-22] VITALS: Ht 182.9 cm; Wt 95.7 kg
[~2022-07-22 10:33] MED LIST changes: +NALO4SPR BNOSTRILS
--- NOTE | 2022-07-22 10:40 | NUR ---
RECEIVED PT 32 YRS MALE CAME FROM HOME C/O PAIN on lt jaw and genralized weekness i have panic attack
--- NOTE | 2022-07-22 10:55 | NUR ---
inserted ango cathter g [address] hand blood drow and sent to lab
--- NOTE | 2022-07-22 11:00 | NUR ---
SEEN BY DR. ROBERTS
[2022-07-22] MEDS ORDERED: ASPIRIN 325 MG TABLET ONE (11:23)
[2022-07-22] MEDS ORDERED: LORAZEPAM INJ 2 MG/ML VIAL ONE (11:24)
[2022-07-22] MEDS ORDERED: ASPIRIN 81 MG TAB.CHEW PO ONE (11:30)
[2022-07-22] MEDS ORDERED: LORAZEPAM INJ 2 MG/ML VIAL IV ONE (11:30)
[2022-07-22 11:42] LABS: BASOPHILS % (AUTO) 0.4 % (0.0-2.0); EOSINOPHILS % (AUTO) 1.4 % (0.0-6.0); HEMATOCRIT 41 % (39-51); HEMOGLOBIN 13.7 g/dL (13.5-17.5); LYMPHOCYTES # (AUTO) 1.9 K/uL (0.8-4.8); LYMPHOCYTES % (AUTO) 29.8 % (20.0-44.0); MEAN CORPUSCULAR HGB CONC 33 g/dl (31.0-36.0); MEAN CORPUSCULAR VOLUME 87 fL (80-96); MONOCYTES # (AUTO) 0.4 K/uL (0.1-1.30); MONOCYTES % (AUTO) 5.5 % (2.0-12.0); NEUTROPHILS # (AUTO) 4.1 K/uL (1.8-8.9); NEUTROPHILS % (AUTO) 62.9 % (43.0-81.0); PLATELET COUNT (AUTO) 177 K/uL (150-450); RED BLOOD CELL COUNT(AUTO) 4.69 MIL/uL (4.5-6.0); WHITE BLOOD COUNT (AUTO) 6.5 K/uL (4.3-11.0)
--- NOTE | 2022-07-22 12:01 | NUR ---
RESTING and asleepy dineses chest pain
[2022-07-22 12:45] LABS: CARBON DIOXIDE 29 mmol/L (21-32); CHLORIDE 103 mmol/L (98-107); CREATININE 0.9 mg/dL (0.6-1.3); GLUCOSE 108 mg/dL (74-106); POTASSIUM 3.7 mmol/L (3.5-5.1); SODIUM SERUM 141 mmol/L (136-145); UREA NITROGEN, BLOOD 11 mg/dL (7-18)
--- NOTE | 2022-07-22 13:13 | NUR ---
PHLEB AT BEDSIDE FOR 2ND TROP DRAW
--- NOTE | 2022-07-22 13:15 | NUR ---
2nd trobonine blood drow done by lab tach at bed side
--- NOTE | 2022-07-22 13:59 | NUR ---
IV removed. Catheter intact and site benign. Pressure and 4x4 applied to site. No bleeding noted.
--- NOTE | 2022-07-22 13:59 | NUR ---
Patient discharged to home in stable condition. Written and verbal after care instructions given. Patient verbalizes understanding of instruction.
[2022-07-22 14:00] VITALS: BP 120/74
== END 2022-07-22 14:00 | disposition home or self-care (01) ==
LOC: ER 10:37
DX: R07.89 Other chest pain (principal); F17.200 Nicotine dependence, unspecified, uncomplicated; F41.1 Generalized anxiety disorder; F19.10 Other psychoactive substance abuse, uncomplicated; Z79.899 Other long term (current) drug therapy
CPT/HCPCS: 99285; 96374; 71045; 93005; 85025; 80048; 36415; 84484 ×2; J2060

== ENCOUNTER 2025-02-14 05:58 | Emergency (ER) | payer OTHER ==
[~2025-02-14] VITALS: Ht 182.9 cm; Wt 99.8 kg
[2025-02-14] MEDS ORDERED: CLONIDINE HCL 0.1 MG TABLET ONE (06:48)
[2025-02-14] MEDS ORDERED: ONDANSETRON HCL/PF 4 MG/2 ML VIAL ONE ×2 (06:48→09:01)
[2025-02-14] MEDS: ONDANSETRON HCL/PF 4 MG/2 ML VIAL IVP ONE (07:05)
[2025-02-14] MEDS: IV NS 0.9% 1,000 ML BAG IV ONE (07:05)
[2025-02-14] MEDS: CLONIDINE HCL 0.1 MG TABLET PO ONE (07:06)
[2025-02-14 07:09] LABS: PLATELET COUNT (AUTO) 194 K/uL (150-450); RED BLOOD CELL COUNT(AUTO) 5.04 MIL/uL (4.5-6.0); RED CELL DISTRIBUTION WIDTH 13.1 % (11.5-15.0); WHITE BLOOD COUNT (AUTO) 14.8 K/uL (4.3-11.0)
[2025-02-14 07:34] LABS: CREATININE 0.5 mg/dL (0.6-1.3); UREA NITROGEN, BLOOD 6.0 mg/dL (7-18)
[2025-02-14 07:44] LABS: SODIUM SERUM 182.0 mmol/L (136-145)
[2025-02-14 07:45] LABS: CALCIUM, SERUM 5.1 mg/dL (8.5-10.1)
[2025-02-14 08:21] LABS: CALCIUM, SERUM 8.7 mg/dL (8.5-10.1); CREATININE 0.8 mg/dL (0.6-1.3); SODIUM SERUM 143.0 mmol/L (136-145); UREA NITROGEN, BLOOD 9.0 mg/dL (7-18)
[2025-02-14] MEDS: BUPRENORPHINE HCL 2 MG TAB.SUBL SL ONE ×2 (09:00→10:49)
[2025-02-14] MEDS ORDERED: BUPRENORPHINE HCL 2 MG TAB.SUBL SL ONE ×3 (09:02→10:41)
[2025-02-14] MEDS: ONDANSETRON HCL/PF - ER 4 MG/2 ML VIAL IV ONE (09:06)
[2025-02-14] MEDS ORDERED: ONDANSETRON 4 MG TAB.RAPDIS ONE (09:08)
[2025-02-14] MEDS: ONDANSETRON 4 MG TAB.RAPDIS SL ONE (09:09)
[2025-02-14] MEDS ORDERED: BUPR8TAB4 SL (10:37)
[2025-02-14] MEDS ORDERED: ONDA4TAB11 PO (10:37)
[2025-02-14 11:37] VITALS: BP 125/77; TEMP 98.6; O2SAT 99
== END 2025-02-14 11:38 | disposition home or self-care (01) ==
LOC: ER 06:04
DX: R11.0 Nausea (principal); F11.23 Opioid dependence with withdrawal; F17.200 Nicotine dependence, unspecified, uncomplicated; E86.0 Dehydration; Z79.899 Other long term (current) drug therapy
CPT/HCPCS: 99285; 96374; 96361; 85025; 80048 ×2; 36415; J2405 ×3; J7030; Q0162